=== PATIENT | female | born 1965 | race Caucasian/White ===

== ENCOUNTER → 2017-09-22 | Outpatient (CLI) | payer BC ==
[~2017-09-22] MED LIST: ALBU17I INH; ALBUAER3 INH; BUPR300T PO; CLAR10CA3 PO; CLON0.5T PO; DIAZ5 PO; DOCU1CAP39 PO; DOXY100C PO; E-ZMIS3 INH; ESTR2TAB PO; FLUT1BLS INH; FLUT1SPR9 EACH NARE; HYDR-3516 PO; HYDR12.56 PO; HYDR50TA94 PO; IBUP800 PO; IPRA0.02 NEB; LEVO-86 PO; LEVO100T75 PO; LORTA5 PO; LOSA100T PO; PANT40TA3 PO; PRAV20 PO; PRED10PA PO; ROSU1TAB6 PO; SYNT112T PO; VIST50CA PO; ZOLP10TA3 PO
[2017-09-22 12:35] LABS: HEMATOCRIT 39.5 % (35.0-46.0); HEMOGLOBIN 13.4 GM/DL (11.6-15.3); MEAN CORPUSCULAR HEMOGLOBIN 32.5 PG (27.0-34.0); MEAN CORPUSCULAR HGB CONC 33.9 % (32.0-36.0); PLATELET COUNT 301 TH/MM3 (150-450); RED BLOOD COUNT 4.11 MIL/MM3 (4.00-5.30); RED CELL DISTRIBUTION WIDTH 14.2 % (11.6-17.2); WHITE BLOOD COUNT 8.2 TH/MM3 (4.0-11.0)
[2017-09-22 12:46] LABS: PROTHROMBIN TIME - PATIENT 10.5 SEC (9.8-11.6)
[2017-09-22 12:47] LABS: BACTERIA, URINE RARE /hpf; BILIRUBIN, URINE NEG (NEG); BLOOD, URINE SMALL (NEG); GLUCOSE,URINE NEG (NEG); KETONE, URINE NEG (NEG); NITRITE,URINE NEG (NEG); SQUAMOUS EPITHELIAL CELL URINE 9 /hpf (0-5); URINE COLOR YELLOW (YELLW/STRAW); URINE LEUKOCYTE ESTERASE NEG (NEG)
[2017-09-22 12:55] LABS: BICARBONATE 27.8 MEQ/L (21.0-32.0); CALCIUM 9.2 MG/DL (8.5-10.1); CREATININE 0.99 MG/DL (0.50-1.00)
--- NOTE | 2017-09-22 14:30 | RADRPT ---
EXAM DATE/TIME: 09/22/2017 12:13 [facility] COMPARISON: CHEST PA & LAT, November 17, 2009, 17:14. [facility] INDICATIONS : Evaluate for pneumonia, pneumothorax and communicable diseases. Pre-op left lobectomy MEDICAL HISTORY : Chronic obstructive pulmonary disease. Hypertension SURGICAL HISTORY : Cholecystectomy. ENCOUNTER: Initial ACUITY: 1 day PAIN SCORE: 0/10 LOCATION: chest FINDINGS: Biapical interstitial opacities similar to previous exam. Wedge-shaped 1.7 cm parenchymal opacity tip r the left lung apex which has progressed since remote prior exam. The cardiomediastinal contours are unremarkable. Osseous structures are intact. CONCLUSION: Biapical scarring with progressive small 1.7 cm wedge-shaped parenchymal opacity near the left lung a pex which may reflect scarring. Consider CT examination for better evaluation as clinically indicated . Yuri Rausch MD on September 22, 2017 at 14:18 Board Certified Radiologist. This report was verified electronically.
--- NOTE | 2017-09-23 10:38 | EKG ---
Date Performed: 09/22/2017 Time Performed: 11:12:12 PTAGE: 51 years EKG: Sinus rhythm NORMAL ECG PREVIOUS TRACING : 11/17/2009 16.39 Bradycardia has resolved from the prior tracing. DOCTOR: Liam Squires Interpretating Date/Time 09/23/2017 10:37:40
== END ==
LOC: CPRE 10:49
PROVIDERS: ATTEND Thoracic Surgery (Cardiothoracic Vascular Surgery)
DX: Z01.812 Encounter for preprocedural laboratory examination (principal); Z01.811 Encounter for preprocedural respiratory examination; Z01.810 Encounter for preprocedural cardiovascular examination; R91.8 Other nonspecific abnormal finding of lung field
CPT/HCPCS: 36415; 71046; 80048; 81001; 85027; 85610; 85730; 93005

== ENCOUNTER 2017-09-29 05:25 | Inpatient (IN) | payer BC ==
[2017-09-29] VITALS (11 sets, daily range): BP systolic 113–114; BP diastolic 57–67; PULSE 75–98; RESP 16–21; TEMP 97.9–98.5; O2SAT 95–97
[~2017-09-29] VITALS: Ht 177.8 cm; Wt 90.0 kg
[~2017-09-29 05:25] MED LIST changes: -ALBU17I INH; -DIAZ5 PO; -DOCU1CAP39 PO; -DOXY100C PO; -E-ZMIS3 INH; -HYDR-3516 PO; -HYDR50TA94 PO; -IBUP800 PO; -LEVO100T75 PO; -LORTA5 PO; -PRAV20 PO; -PRED10PA PO; -SYNT112T PO; -VIST50CA PO
[2017-09-29] MEDS ORDERED: METOPROLOL TARTRATE 25 MG TAB PO PRN (05:45)
[2017-09-29] MEDS ORDERED: INSULIN HUMAN REGULAR 1,000 UNITS/10 ML VIAL SQ PRN (05:45)
[2017-09-29] MEDS ORDERED: CHLORHEXIDINE GLUCONATE 2 % 1 PACK (2 CLOTHS) TOPICAL PRN (05:45)
[2017-09-29] MEDS ORDERED: POVIDONE IODINE 5% (ANTISEPSIS KIT) 4 APPLICATIONS EACH NARE PRN (05:45)
[2017-09-29] MEDS ORDERED: SODIUM CHLORID 0.9% 500 ML IV PRN (05:45)
[2017-09-29] MEDS ORDERED: LACTATED RINGER'S 1000 ML IV PRN (05:45)
[2017-09-29] MEDS ORDERED: BUPIVACAINE LIPOSO PF 1.3% INJ 20 ML, DEXAMETHASONE INJ 4 MG, MORPHINE INJ 8 MG in SODI... IRRIGATION ONE (07:15)
[2017-09-29] MEDS ORDERED: METOCLOPRAMIDE HCL 10 MG/2 ML VIAL ONE (07:20)
[2017-09-29] MEDS ORDERED: FAMOTIDINE 20 MG/2 ML VIAL ONE (07:20)
[2017-09-29] MEDS ORDERED: ceFAZolin 2 GM PREMIX 0 ML ONE (07:25)
[2017-09-29] MEDS ORDERED: HEPARIN SODIUM - SQ 10,000 UNITS/ML VIAL ONE (07:25)
[2017-09-29] MEDS ORDERED: VANCOMYCIN HCL 1000 MG VIAL ONE (07:39)
--- NOTE | 2017-09-29 09:01 | PD.CAR.PN ---
CVT Progress Note Subjective/Hospital Course: 51yr female presented to PCP, Pulmonary with SOB, complete workup demonstrated 1.4 cm Pet-Positive mass left lower lobe PMH COPD, hypothyroidism, lung mass , chronic nicotine use electively admitted today for lung surgery Objective: Vital Signs Date Time Temp Pulse Resp B/P (MAP) Pulse Ox O2 Delivery O2 Flow Rate FiO2 09/29/17 06:13 98.0 85 20 147/78 (101) 95 Taylor Corbett September 29, 2017 09:01
[2017-09-29] MEDS ORDERED: BUPIVACAINE/EPINEPHRINE 0.5% PF 10 ML VIAL ONE (09:10)
[2017-09-29] MEDS ORDERED: BUPIVACAINE HCL PF 0.5% 30 ML VIAL ONE (09:11)
[2017-09-29] MEDS ORDERED: fentaNYL CITRATE 250 MCG/5 ML AMP ONE (09:37)
[2017-09-29] MEDS ORDERED: LIDOCAINE HCL 1% PF 5 ML SYRINGE OTHER ONE (12:00)
[2017-09-29] MEDS ORDERED: PROPOFOL 200 MG/20 ML AMP IV ONE (12:00)
[2017-09-29] MEDS ORDERED: PHENYLEPH/NS 1000 MCG/10 ML SYR IV ONE (12:00)
[2017-09-29] MEDS ORDERED: ONDANSETRON HCL 4 MG/2 ML VIAL IV PUSH ONE (12:00)
[2017-09-29] MEDS ORDERED: SODIUM CHLORID 0.9% 500 ML INJ 500 ML IV ONE (12:00)
[2017-09-29] MEDS ORDERED: ROCURONIUM INJ 50 MG/5 ML SYRINGE IV PUSH ONE (12:00)
[2017-09-29] MEDS ORDERED: SODIUM CHLOR 0.9% 250 ML INJ 250 ML IV ONE (12:00)
[2017-09-29] MEDS ORDERED: DEXAMETHASONE SOD PHOS 4 MG/ML VIAL IV ONE (12:00)
[2017-09-29] MEDS ORDERED: NORMOSOL R INJ 1,000 ML IV ONE (12:00)
[2017-09-29] MEDS ORDERED: VECURONIUM BROMIDE 20 MG VIAL IV ONE (12:00)
[2017-09-29] MEDS ORDERED: Post-op Orders (for Pharmacy) OTHER ONE (13:15)
[2017-09-29] MEDS ORDERED: ACETAMINOPHEN 325 MG TAB PO PRN (13:15)
[2017-09-29] MEDS ORDERED: NALOXONE HCL 0.4 MG/ML AMP IV PUSH PRN (13:15)
[2017-09-29] MEDS ORDERED: SODIUM CHLORIDE 0.9% FLUSH 10 ML FLUSH IV FLUSH PRN (13:15)
[2017-09-29] MEDS ORDERED: MAGNESIUM HYDROXIDE SUSP 30 ML CUP PO PRN (13:15)
[2017-09-29] MEDS: MORPHINE SULFATE 30 MG/30 ML PCA IV SCH (13:25)
[2017-09-29] MEDS: LACTATED RINGER'S 1000 ML INJ 1,000 ML IV SCH (13:25)
[2017-09-29] MEDS ORDERED: MIDAZOLAM HCL 2 MG/2 ML VIAL ONE (13:37)
[2017-09-29] MEDS ORDERED: DO NOT ADM ANY ANTICOAGULANT DRUGS PRN (14:00)
[2017-09-29] MEDS: PCA - TOTAL MG MORPHINE DELIVERED PER SHIFT SCH ×2 (14:00→22:10)
--- NOTE | 2017-09-29 14:07 | RADRPT ---
EXAM DATE/TIME: 09/29/2017 13:43 [facility] COMPARISON: CHEST PA & LAT, September 22, 2017, 12:13. INDICATIONS : Post thoracotomy, evaluate left chest tube and central line MEDICAL HISTORY : Chronic obstructive pulmonary disease. Hypertension SURGICAL HISTORY : Cholecystectomy. ENCOUNTER: Subsequent ACUITY: 4 - 6 days PAIN SCORE: Non-responsive. LOCATION: Bilateral chest FINDINGS: A single view of the chest demonstrates interval placement of a left-sided thoracostomy tube. No pneu mothorax. Left basilar consolidation/effusion some volume loss in the left hemithorax. Suggestion of some pleural-parenchymal scarring laterally in the right upper lung, unchanged. Right IJ introducer s raghav and catheter with the latter projecting over the central venous system. Surgical clips in the r ight upper abdominal quadrant are characteristic of prior cholecystectomy. CONCLUSION: 1. Volume loss in the left hemithorax with volume loss but no pneumothorax. 2. Left basilar consolidation/effusion. Probable pleural-parenchymal scarring laterally in the right upper lung. 3. Right IJ introducer sheath and central venous catheter Denys Smith MD on September 29, 2017 at 14:01 Board Certified Radiologist. This report was verified electronically.
--- NOTE | 2017-09-29 14:31 | PD.OP ---
cc: Jere Tolentino MD; Jeremias Etienne MD Operative Report Procedure: 1. Robotic Left Lower Lobectomy 2. Mediastinal Lymph Node Dissection. 3. Intercostal Nerve Block 4. Lysis of Adhesions Surgeon: Jere Tolentino Rockboard Lather(s): Serg Benson Operation and Findings: PREOPERATIVE DIAGNOSIS 1) Left Lower Lobe Lung Mass 2) Severe COPD 3) Obesity POSTOPERATIVE DIAGNOSIS 1) Left Lower Lobe Lung Mass 2) Severe COPD 3) Obesity 4) Dense Adhesions PROCEDURES 1. Robotic Left Lower Lobectomy 2. Mediastinal Lymph Node Dissection. 3. Intercostal Nerve Block 4. Lysis of Adhesions SURGEON Jere Tolentino MD RANCH RIDER JORGE Herring, CST ANESTHESIA General endotracheal. SHIPWRIGHT SUPERVISOR BENY Arevalo MD OPERATIVE TIME Please see record. COMPLICATIONS None. INDICATION FOR PROCEDURE The patient is a 51 yo lady with long standing h/o smoking presenting with a PET positive left lower lobe lung mass. DESCRIPTION OF PROCEDURE The patient was brought to the operating suite and placed in supine position. Following satisfactory induction of general endotracheal anesthesia, the patient was placed in the right lateral decubitus position. The left chest was then prepped and draped in the usual sterile fashion. Under direct vision, camera was introduced in the 8th ICS and insufflation was begun into the chest . Instrument arm 1, 2, and 3 were placed. Lesion was identified. Dense diffuse adhesions were encountered involving the entire lung. These were sharply divided. The lesion was resected with a surgical stapler and sent for frozen section analysis. This was consistent with a primary lung cancer. Plans were made to proceed with a formal lobectomy. The inferior pulmonary ligament was divided. The pulmonary arterial supply to the lower lobe was identified, dissected free and divided as was the pulmonary venous supply. The bronchus was then dissected free, clamped and the remaining lung was insufflated without any difficulty. Lymph node dissections of level 7, 9, 10 and 11 were performed along with the course of this removal. Some of these were retained with the specimen. Specimen was bagged and removed from the chest. A 32-Slovak chest tube was placed. Intercostal nerve block was performed at the level of the incision and 3 rib spaces above and below using Exparel with Decadron solution. Evicel was sprayed along the staple line and no air-leaks were identified. Wounds were closed with 2-0, 3-0, and 4-0 Monocryl. The patient tolerated the procedure well and postoperatively went to recovery in stable condition. Jere Tolentino MD September 29, 2017 14:31
--- NOTE | 2017-09-29 14:38 | HHI.FF ---
Face to Face Verification Diagnosis: (1) Tobacco abuse (2) COPD (chronic obstructive pulmonary disease) (3) Lung mass Home Health Nursing Order: Signs/symptoms of disease process Medication education-adverse effect Wound care and dressing changes Nursing assessment with vital signs Instructions: Thoracic Surgery patients Mandatory frequency Assess and evaluation, 2-3 x a week for one week Initial visit 1. Review post chest surgery instructions chest precautions, Activity, Elastic hose, Incision care, Driving, Incentive spirometry, Smoking, [place] , Work and other) 2. Need Betadine to paint incision 3. Medication reconciliation 4. Importance of follow up care/ check on appointments 5. Make calendar record temperature daily 6. When to call Home nurse, review instructions, phone list 7. Incentive Spirometry, demonstration Visit 1- Begin discharge instruction for patient family and/ or caregiver using teach back method- 1. Signs and symptoms of infection 2. Disease characteristics 3. Medicines and side effects 4. Foods and nutrition/ appetite 5. Infection control/ hand washing/ hygiene Visit 2- Continue teaching 1. Discharge instructions- include additional information on smoking cessation , Visit 3- Continue teaching- 1. Cough and deep breathing, incision monitoring. For any questions please call : [email or web address] Cardiothoracic Surgery [phone] Incentive spirometry Q1 hr x 10, while awake, also use acapella device hourly whole Chest wall precautions: NO pushing or pulling, ( pt must use chest pillow support chest with all activities and with coughing Daily incision care: ok to shower ( 48hrs after chest tube removed) and then daily, no tub bath. Wash all incisions with liquid dial soap, clean wash cloth to each site, rinse and pat dry. Observe for any signs of infection, such as drainage which is dark yellow, [place], green or foul smelling. Immediately report to the surgeon any drainage from the chest incision, or legs, and for any abnormal drainage from the chest tube sites. Notify surgeon if any temp > 101.5 degrees F. When specialty dressing removed/ or if you do not have one, continue to shower daily as above, then rinse and pat incision dry and paint with betadine daily x 5 days. Allow steri strips to fall off if you have any. Avoid lotions, creams, salves, oils, etc. for the first month F/U appointment: as per [facility] instructions: PCP in 2 weeks, CV surgeon 2 weeks, Ion Implant Machine Operator 3-4 weeks For any questions regarding incisions/ dressing / meds / post op care or above Symptoms, Thursday 8am-5pm Heart & Vascular Surgery Office ( Dr. Tolentino & Dr. Vasquez), After Hours / Nights (5pm -8am) Weekends and Holidays Please call [facility] Cardiac [facility] ([facility]) Charge Nurse I have seen patient Mary Gomez on 09/29/17. My clinical findings support the need for the requested home health care services because: Deconditioned w/ increased weakness I certify that my clinical findings support that this patient is homebound because: Post-op weakness Taylor Corbett September 29, 2017 14:38
[2017-09-29] MEDS: KETOROLAC TROMETHAMINE 30 MG/ML (IVP) VIAL IV PUSH SCH ×2 (16:31→21:43)
[2017-09-29] MEDS: ACETAMINOPHEN 1000 MG/100 ML 100 ML IV SCH ×2 (16:31→21:42)
[2017-09-29] MEDS: SODIUM CHLORIDE 0.9% FLUSH 10 ML FLUSH IV FLUSH SCH (21:43)
[2017-09-29] MEDS: VANCOMYCIN INJ 1 GM in SODIUM CHLORIDE 0.9% INJ 250 ML IV SCH (21:43)
[2017-09-29] MEDS: PANTOPRAZOLE SOD 40 MG DELAYED RELEASE TAB PO SCH (21:44)
[2017-09-29] MEDS: clonazePAM 0.5 MG TAB PO SCH (21:44)
[2017-09-29] MEDS: ATORVASTATIN 20 MG TAB PO SCH (21:44)
[2017-09-29] MEDS: DOCUSATE CALCIUM 240 MG CAP PO SCH (21:44)
[2017-09-29] MEDS: RESP: ALBUTEROL 2.5 MG/3 ML NEB (SCH) NEB (22:00)
[2017-09-30] VITALS (29 sets, daily range): BP systolic 118–143; BP diastolic 62–73; PULSE 75–114; RESP 19–21; TEMP 98–98.7; O2SAT 92–97
[2017-09-30] MEDS: KETOROLAC TROMETHAMINE 30 MG/ML (IVP) VIAL IV PUSH SCH ×2 (03:02→08:52)
[2017-09-30] MEDS: ACETAMINOPHEN 1000 MG/100 ML 100 ML IV SCH ×2 (03:02→08:50)
[2017-09-30] MEDS: RESP: ALBUTEROL 2.5 MG/3 ML NEB (SCH) NEB ×4 (03:21→20:59)
[2017-09-30 04:16] LABS: AUTOMATED NEUTROPHIL # 9.6 TH/MM3 (1.8-7.7); BASOPHIL % 0.2 % (0.0-2.0); EOSINOPHIL % 0.1 % (0.0-4.0); HEMATOCRIT 31.6 % (35.0-46.0); HEMOGLOBIN 10.7 GM/DL (11.6-15.3); LYMPH % 8.5 % (9.0-44.0); MEAN CELL VOLUME 94.1 FL (80.0-100.0); MEAN CORPUSCULAR HEMOGLOBIN 31.8 PG (27.0-34.0); MEAN CORPUSCULAR HGB CONC 33.8 % (32.0-36.0); MEAN PLATELET VOLUME 8.1 FL (7.0-11.0); MONOCYTE # 1.3 TH/MM3 (0-0.9); NEUT % 80.2 % (16.0-70.0); PLATELET COUNT 277 TH/MM3 (150-450); RED BLOOD COUNT 3.36 MIL/MM3 (4.00-5.30); RED CELL DISTRIBUTION WIDTH 14.4 % (11.6-17.2); WHITE BLOOD COUNT 11.9 TH/MM3 (4.0-11.0)
--- NOTE | 2017-09-30 04:27 | RADRPT ---
EXAM DATE/TIME: 09/30/2017 02:33 [facility] COMPARISON: CHEST SINGLE AP, September 29, 2017, 13:43. INDICATIONS : Short of breath. MEDICAL HISTORY : Chronic obstructive pulmonary disease. Hypertension SURGICAL HISTORY : Cholecystectomy. ENCOUNTER: Subsequent ACUITY: 1 week PAIN SCORE: 0/10 LOCATION: Bilateral chest FINDINGS: A single view of the chest demonstrates the left chest tube and right IJ central line both in excelle nt position. Left hemidiaphragm is slightly elevated. Right lung is grossly clear.. Osseous structur es are intact. CONCLUSION: No developing infiltrate or mass. Left hemidiaphragm remains slightly elevated. Clifton Kathleen MD on September 30, 2017 at 4:25 Board Certified Radiologist. This report was verified electronically.
[2017-09-30 04:37] LABS: BICARBONATE 27.3 MEQ/L (21.0-32.0); CALCIUM 8.6 MG/DL (8.5-10.1); CREATININE 0.95 MG/DL (0.50-1.00)
[2017-09-30] MEDS: PCA - TOTAL MG MORPHINE DELIVERED PER SHIFT SCH ×3 (06:00→22:00)
[2017-09-30] MEDS: LEVOTHYROXINE SODIUM 112 MCG TAB PO SCH (06:02)
[2017-09-30] MEDS: LEVOTHYROXINE SODIUM 25 MCG TAB PO SCH (06:02)
[2017-09-30] MEDS: VANCOMYCIN INJ 1 GM in SODIUM CHLORIDE 0.9% INJ 250 ML IV SCH (08:50)
[2017-09-30] MEDS: HYDROCHLOROTHIAZIDE 12.5 MG CAP PO SCH (08:51)
[2017-09-30] MEDS: ESTRADIOL 1 MG TAB PO SCH (08:51)
[2017-09-30] MEDS: buPROPion HCL 150 MG SUSTAINED RELEASE TAB PO SCH ×2 (08:51→20:30)
[2017-09-30] MEDS: clonazePAM 0.5 MG TAB PO SCH ×2 (08:51→20:29)
[2017-09-30] MEDS: SODIUM CHLORIDE 0.9% FLUSH 10 ML FLUSH IV FLUSH SCH ×2 (08:52→20:31)
--- NOTE | 2017-09-30 10:41 | PD.CAR.PN ---
CVT Progress Note Subjective/Hospital Course: 51yr female presented to PCP, Pulmonary with SOB, complete workup demonstrated 1.4 cm Pet-Positive mass left lower lobe PMH COPD, hypothyroidism, lung mass , chronic nicotine use 09/29/17 surgery: 1. Robotic Left Lower Lobectomy 2. Mediastinal Lymph Node Dissection. 3. Intercostal Nerve Block 4. Lysis of Adhesions 09/30 pain controlled with SPOT CLEANER Objective: GENERAL: A&O x 3 SKIN: Warm and dry. incision intact left posterior chest wall x 2 / HEAD: Normocephalic. EYES: No scleral icterus. No injection or drainage. NECK: Supple, trachea midline. No JVD or lymphadenopathy. CARDIOVASCULAR: Regular rate and rhythm without murmurs, gallops, or rubs. RESPIRATORY: Breath sounds equal bilaterally. No accessory muscle use. diminished left lower lobe , chest tube to water seal + +1 air leak intermittent drained 290cc/ 12 hrs GASTROINTESTINAL: Abdomen soft, non-tender, nondistended. MUSCULOSKELETAL: No cyanosis, or edema. BACK: Nontender without obvious deformity. No CVA tenderness. Vital Signs Date Time Temp Pulse Resp B/P (MAP) Pulse Ox O2 Delivery O2 Flow Rate FiO2 09/30/17 10:03 93 09/30/17 08:00 98.4 78 20 127/63 (84) 96 09/30/17 08:00 88 09/30/17 07:00 79 09/30/17 06:23 81 09/30/17 06:00 21 09/30/17 05:12 86 09/30/17 04:44 85 09/30/17 03:25 Nasal Cannula 2.00 09/30/17 03:20 82 09/30/17 03:20 98.0 75 19 119/66 (83) 96 09/30/17 02:13 85 09/30/17 01:26 82 09/30/17 00:46 82 09/29/17 23:53 85 09/29/17 23:20 98.5 79 21 114/58 (76) 95 09/29/17 22:10 21 09/29/17 22:00 78 09/29/17 21:00 82 09/29/17 20:00 98 09/29/17 19:10 85 09/29/17 19:10 98.4 88 20 113/57 (75) 97 09/29/17 18:00 90 09/29/17 17:00 86 09/29/17 16:00 88 09/29/17 15:48 92 09/29/17 15:34 97.9 75 16 113/67 (82) 97 09/29/17 15:00 97.5 81 18 104/66 (79) 100 Nasal Cannula 2 09/29/17 14:30 81 17 107/59 (75) 100 Nasal Cannula 2 09/29/17 14:15 82 13 111/65 (80) 99 Nasal Cannula 2 09/29/17 14:00 82 13 111/63 (79) 99 Nasal Cannula 2 09/29/17 14:00 20 09/29/17 13:45 85 22 100/60 (73) 99 Nasal Cannula 2 09/29/17 13:30 91 18 100/53 (69) 98 Nasal Cannula 2 09/29/17 13:27 97.6 90 18 105/69 (81) 100 Nasal Cannula 2 09/29/17 13:25 14 Labs: Laboratory Tests Test 09/30/17 03:30 White Blood Count 11.9 TH/MM3 (4.0-11.0) Red Blood Count 3.36 MIL/MM3 (4.00-5.30) Hemoglobin 10.7 GM/DL (11.6-15.3) Hematocrit 31.6 % (35.0-46.0) Mean Corpuscular Volume 94.1 FL (80.0-100.0) Mean Corpuscular Hemoglobin 31.8 PG (27.0-34.0) Mean Corpuscular Hemoglobin Concent 33.8 % (32.0-36.0) Red Cell Distribution Width 14.4 % (11.6-17.2) Platelet Count 277 TH/MM3 (150-450) Mean Platelet Volume 8.1 FL (7.0-11.0) Neutrophils (%) (Auto) 80.2 % (16.0-70.0) Lymphocytes (%) (Auto) 8.5 % (9.0-44.0) Monocytes (%) (Auto) 11.0 % (0.0-8.0) Eosinophils (%) (Auto) 0.1 % (0.0-4.0) Basophils (%) (Auto) 0.2 % (0.0-2.0) Neutrophils # (Auto) 9.6 TH/MM3 (1.8-7.7) Lymphocytes # (Auto) 1.0 TH/MM3 (1.0-4.8) Monocytes # (Auto) 1.3 TH/MM3 (0-0.9) Eosinophils # (Auto) 0.0 TH/MM3 (0-0.4) Basophils # (Auto) 0.0 TH/MM3 (0-0.2) CBC Comment DIFF FINAL Differential Comment Blood Urea Nitrogen 15 MG/DL (7-18) Creatinine 0.95 MG/DL (0.50-1.00) Random Glucose 112 MG/DL (74-106) Calcium Level 8.6 MG/DL (8.5-10.1) Sodium Level 138 MEQ/L (136-145) Potassium Level 4.3 MEQ/L (3.5-5.1) Chloride Level 103 MEQ/L (98-107) Carbon Dioxide Level 27.3 MEQ/L (21.0-32.0) Anion Gap 8 MEQ/L (5-15) Estimat Glomerular Filtration Rate 62 ML/MIN (>89) Result Diagram: 09/30/17 0330 09/30/17 0330 Telemetry: NSR (1) Mixed hyperlipidemia (2) COPD (chronic obstructive pulmonary disease) (3) Tobacco abuse (4) Lung mass (5) Robotic Left Lower Lobectomy Plan: pulm toileting OOB, ambulate nebs pain control path pending Taylor Corbett September 30, 2017 10:41
[2017-09-30] MEDS: FLUTICASONE PROPIONATE 50 MCG/ACT 16 GM NASAL SPRAY EACH NARE SCH (10:49)
[2017-09-30] MEDS: MORPHINE SULFATE 30 MG/30 ML PCA IV SCH (17:24)
[2017-09-30] MEDS: ONDANSETRON HCL 4 MG/2 ML VIAL IV PUSH PRN (20:29)
[2017-09-30] MEDS: PANTOPRAZOLE SOD 40 MG DELAYED RELEASE TAB PO SCH (20:30)
[2017-09-30] MEDS: DOCUSATE CALCIUM 240 MG CAP PO SCH (20:30)
[2017-09-30] MEDS: ATORVASTATIN 20 MG TAB PO SCH (20:30)
[2017-09-30] MEDS: ACETAMINOPHEN/HYDROcodone 325 MG/5 MG TAB PO PRN (20:31)
[2017-10-01] VITALS (24 sets, daily range): BP systolic 108–140; BP diastolic 59–69; PULSE 86–113; RESP 14–20; TEMP 97.9–98.4; O2SAT 95–100
[2017-10-01] MEDS: RESP: ALBUTEROL 2.5 MG/3 ML NEB (SCH) NEB ×4 (04:06→21:18)
[2017-10-01] MEDS: PCA - TOTAL MG MORPHINE DELIVERED PER SHIFT SCH ×3 (06:00→20:33)
[2017-10-01] MEDS: LEVOTHYROXINE SODIUM 25 MCG TAB PO SCH (06:13)
[2017-10-01] MEDS: LEVOTHYROXINE SODIUM 112 MCG TAB PO SCH (06:14)
[2017-10-01] MEDS: POLYETHYLENE GLYCOL 17 GM PKG PO SCH (09:17)
[2017-10-01] MEDS: clonazePAM 0.5 MG TAB PO SCH ×2 (09:17→20:33)
[2017-10-01] MEDS: DOCUSATE SODIUM 100 MG CAP PO SCH ×2 (09:17→20:32)
[2017-10-01] MEDS: ESTRADIOL 1 MG TAB PO SCH (09:17)
[2017-10-01] MEDS: buPROPion HCL 150 MG SUSTAINED RELEASE TAB PO SCH ×2 (09:17→20:32)
[2017-10-01] MEDS: HYDROCHLOROTHIAZIDE 12.5 MG CAP PO SCH (09:17)
[2017-10-01] MEDS: ONDANSETRON HCL 4 MG/2 ML VIAL IV PUSH PRN (09:18)
[2017-10-01] MEDS: SODIUM CHLORIDE 0.9% FLUSH 10 ML FLUSH IV FLUSH SCH ×2 (09:18→20:33)
[2017-10-01] MEDS: FLUTICASONE PROPIONATE 50 MCG/ACT 16 GM NASAL SPRAY EACH NARE SCH (09:19)
--- NOTE | 2017-10-01 10:07 | PD.CAR.PN ---
CVT Progress Note Subjective/Hospital Course: 51yr female presented to PCP, Pulmonary with SOB, complete workup demonstrated 1.4 cm Pet-Positive mass left lower lobe PMH COPD, hypothyroidism, lung mass , chronic nicotine use 09/29/17 surgery: 1. Robotic Left Lower Lobectomy 2. Mediastinal Lymph Node Dissection. 3. Intercostal Nerve Block 4. Lysis of Adhesions 09/30 pain controlled with BUTTON SEWER HAND 10/01 more painful today, despite BUTTON SEWER HAND Toradol added still has +1 air leak, on water seal leave chest tube in OOB Objective: GENERAL: A&O x 3 SKIN: Warm and dry. incisions intact to left posterior chest wall, HEAD: Normocephalic. EYES: No scleral icterus. No injection or drainage. NECK: Supple, trachea midline. No JVD or lymphadenopathy. CARDIOVASCULAR: Regular rate and rhythm without murmurs, gallops, or rubs. RESPIRATORY: Breath sounds equal bilaterally. No accessory muscle use. chest tube in place to water seal/ drained 190cc/ 12 hrs GASTROINTESTINAL: Abdomen soft, non-tender, nondistended. MUSCULOSKELETAL: No cyanosis, or edema. BACK: Nontender without obvious deformity. No CVA tenderness. Vital Signs Date Time Temp Pulse Resp B/P (MAP) Pulse Ox O2 Delivery O2 Flow Rate FiO2 10/01/17 09:00 96 10/01/17 08:00 102 10/01/17 08:00 98.2 99 18 126/60 (82) 97 10/01/17 07:00 99 10/01/17 06:07 107 10/01/17 06:00 19 10/01/17 05:06 103 10/01/17 04:00 102 10/01/17 03:28 98.4 99 20 140/69 (92) 95 10/01/17 03:28 107 10/01/17 02:08 97 10/01/17 01:22 97 10/01/17 00:33 105 09/30/17 23:20 98.7 105 21 143/65 (91) 97 09/30/17 23:20 105 09/30/17 22:00 113 09/30/17 22:00 20 09/30/17 21:00 110 09/30/17 20:59 94 Nasal Cannula 2.00 09/30/17 20:00 102 09/30/17 19:10 98.5 114 21 142/73 (96) 92 09/30/17 19:10 105 09/30/17 18:00 98 09/30/17 17:00 92 09/30/17 16:32 96 21 09/30/17 16:00 90 09/30/17 15:27 98.4 92 20 118/64 (82) 96 09/30/17 15:00 97 09/30/17 14:00 90 09/30/17 13:29 20 09/30/17 13:00 88 09/30/17 12:00 92 09/30/17 11:48 98.0 96 20 124/62 (82) 96 09/30/17 11:00 96 Result Diagram: 09/30/17 0330 09/30/17 0330 Telemetry: NSR (1) Mixed hyperlipidemia (2) COPD (chronic obstructive pulmonary disease) (3) Tobacco abuse (4) Lung mass (5) Robotic Left Lower Lobectomy Plan: pulm toileting OOB, ambulate nebs pain control / add toradol path pending Taylor Corbett October 01, 2017 10:07
[2017-10-01] MEDS: LACTATED RINGER'S 1000 ML INJ 1,000 ML IV SCH ×2 (13:25→13:30)
[2017-10-01] MEDS: KETOROLAC TROMETHAMINE 30 MG/ML (IVP) VIAL IV PUSH PRN (20:30)
[2017-10-01] MEDS: ACETAMINOPHEN/HYDROcodone 325 MG/5 MG TAB PO PRN (20:31)
[2017-10-01] MEDS: ZOLPIDEM TARTRATE 10 MG TAB PO PRN (20:31)
[2017-10-01] MEDS: DOCUSATE CALCIUM 240 MG CAP PO SCH (20:32)
[2017-10-01] MEDS: PANTOPRAZOLE SOD 40 MG DELAYED RELEASE TAB PO SCH (20:32)
[2017-10-01] MEDS: ATORVASTATIN 20 MG TAB PO SCH (20:32)
[2017-10-01] MEDS: MORPHINE SULFATE 30 MG/30 ML PCA IV SCH (20:35)
[2017-10-02] VITALS (25 sets, daily range): BP systolic 113–134; BP diastolic 16–81; PULSE 16–100; RESP 16–18; TEMP 97.9–98.1; O2SAT 91–100
[2017-10-02] MEDS: RESP: ALBUTEROL 2.5 MG/3 ML NEB (SCH) NEB ×3 (04:09→21:00)
--- NOTE | 2017-10-02 05:35 | RADRPT ---
EXAM DATE/TIME: 10/02/2017 04:30 [facility] COMPARISON: CHEST SINGLE AP, September 30, 2017, 2:33. INDICATIONS : Chest tube with air leak. MEDICAL HISTORY : Chronic obstructive pulmonary disease. Hypertension SURGICAL HISTORY : Cholecystectomy. ENCOUNTER: Subsequent ACUITY: 1 day PAIN SCORE: Non-responsive. LOCATION: Bilateral chest FINDINGS: A single view of the chest demonstrates left-sided chest tube without pneumothorax. Pleural-parenchym al density throughout the left lung. Right jugular line unchanged. Osseous structures are intact. CONCLUSION: Left-sided chest tube without pneumothorax. Pleural-parenchymal density throughout the left lung. Jermaine Simpson MD on October 02, 2017 at 5:33 Board Certified Radiologist. This report was verified electronically.
[2017-10-02] MEDS: PCA - TOTAL MG MORPHINE DELIVERED PER SHIFT SCH (06:00)
[2017-10-02] MEDS: LEVOTHYROXINE SODIUM 112 MCG TAB PO SCH (06:32)
[2017-10-02] MEDS: LEVOTHYROXINE SODIUM 25 MCG TAB PO SCH (06:32)
[2017-10-02] MEDS: POLYETHYLENE GLYCOL 17 GM PKG PO SCH (10:40)
[2017-10-02] MEDS: KETOROLAC TROMETHAMINE 30 MG/ML (IVP) VIAL IV PUSH PRN (10:40)
[2017-10-02] MEDS: ESTRADIOL 1 MG TAB PO SCH (10:40)
[2017-10-02] MEDS: DOCUSATE SODIUM 100 MG CAP PO SCH ×2 (10:41→21:20)
[2017-10-02] MEDS: clonazePAM 0.5 MG TAB PO SCH ×2 (10:41→21:20)
[2017-10-02] MEDS: SODIUM CHLORIDE 0.9% FLUSH 10 ML FLUSH IV FLUSH SCH ×2 (10:41→23:13)
[2017-10-02] MEDS: HYDROCHLOROTHIAZIDE 12.5 MG CAP PO SCH (10:41)
[2017-10-02] MEDS: FLUTICASONE PROPIONATE 50 MCG/ACT 16 GM NASAL SPRAY EACH NARE SCH (10:41)
[2017-10-02] MEDS: buPROPion HCL 150 MG SUSTAINED RELEASE TAB PO SCH ×2 (10:41→21:21)
--- NOTE | 2017-10-02 12:01 | PD.CAR.PN ---
CVT Progress Note Subjective/Hospital Course: 51yr female presented to PCP, Pulmonary with SOB, complete workup demonstrated 1.4 cm Pet-Positive mass left lower lobe PMH COPD, hypothyroidism, lung mass , chronic nicotine use 09/29/17 surgery: 1. Robotic Left Lower Lobectomy 2. Mediastinal Lymph Node Dissection. 3. Intercostal Nerve Block 4. Lysis of Adhesions 09/30 pain controlled with MANAGEMENT EXPERT 10/01 more painful today, despite MANAGEMENT EXPERT Toradol added still has +1 air leak, on water seal leave chest tube in OOB 10/02 pt nauseated , will dc MANAGEMENT EXPERT pump add reglan po pain meds intermittent air leak, no PTX on chest xray add GI motility meds Objective: GENERAL: A&O x 3 SKIN: Warm and dry. incisions intact left lateral chest wall HEAD: Normocephalic. EYES: No scleral icterus. No injection or drainage. NECK: Supple, trachea midline. No JVD or lymphadenopathy. CARDIOVASCULAR: Regular rate and rhythm without murmurs, gallops, or rubs. RESPIRATORY: Breath sounds equal bilaterally. No accessory muscle use. chest tube in place , drained 140cc/ 12 hrs 430cc /24 hrs , intermittent air leak GASTROINTESTINAL: Abdomen soft, non-tender, nondistended. MUSCULOSKELETAL: No cyanosis, or edema. BACK: Nontender without obvious deformity. No CVA tenderness. Vital Signs Date Time Temp Pulse Resp B/P (MAP) Pulse Ox O2 Delivery O2 Flow Rate FiO2 10/02/17 06:00 16 10/02/17 06:00 94 10/02/17 05:00 94 10/02/17 04:11 98 Nasal Cannula 2.00 10/02/17 04:00 86 10/02/17 04:00 98.1 88 16 116/16 (49) 100 10/02/17 03:00 87 10/02/17 02:00 94 10/02/17 01:00 88 10/02/17 00:00 98.1 91 16 124/60 (81) 100 10/02/17 00:00 90 10/01/17 23:00 103 10/01/17 22:00 92 10/01/17 21:00 94 10/01/17 20:35 16 10/01/17 20:33 18 10/01/17 20:00 96 10/01/17 20:00 97.9 97 16 117/59 (78) 100 10/01/17 19:00 94 10/01/17 18:00 97 10/01/17 17:00 95 10/01/17 16:00 91 10/01/17 15:05 Nasal Cannula 2.00 10/01/17 15:00 92 10/01/17 15:00 98.1 86 14 108/59 (75) 100 10/01/17 14:00 94 10/01/17 13:00 103 10/01/17 12:00 96 Result Diagram: 09/30/17 0330 09/30/17 0330 Telemetry: NSR (1) Mixed hyperlipidemia (2) COPD (chronic obstructive pulmonary disease) (3) Tobacco abuse (4) Lung mass (5) Robotic Left Lower Lobectomy Plan: pulm toileting OOB, ambulate nebs pain control / add toradol/ DC MANAGEMENT EXPERT add additional po meds add reglan / GI motility meds path pending Taylor Corbett October 02, 2017 12:01
[2017-10-02] MEDS ORDERED: BISACODYL 10 MG SUPP RECTAL ONE (12:15)
[2017-10-02] MEDS ORDERED: SOD PHOSPHATE/SOD BIPHOSPHATE (ADULT) ENEMA 133ML PR ONE (14:00)
[2017-10-02] MEDS: METOCLOPRAMIDE HCL 10 MG/2 ML VIAL IV PUSH SCH ×2 (14:29→21:23)
[2017-10-02] MEDS: PANTOPRAZOLE SOD 40 MG DELAYED RELEASE TAB PO SCH (21:20)
[2017-10-02] MEDS: ATORVASTATIN 20 MG TAB PO SCH (21:21)
[2017-10-02] MEDS: ACETAMINOPHEN/HYDROcodone 325 MG/5 MG TAB PO PRN (21:22)
[2017-10-03] VITALS (22 sets, daily range): BP systolic 117–159; BP diastolic 58–80; PULSE 76–98; RESP 16–22; TEMP 97.5–98.3; O2SAT 92–98
[2017-10-03] MEDS: ACETAMINOPHEN/HYDROcodone 325 MG/5 MG TAB PO PRN ×5 (02:59→21:00)
[2017-10-03] MEDS: RESP: ALBUTEROL 2.5 MG/3 ML NEB (SCH) NEB ×2 (04:00→12:54)
[2017-10-03] MEDS: LEVOTHYROXINE SODIUM 112 MCG TAB PO SCH (05:36)
[2017-10-03] MEDS: LEVOTHYROXINE SODIUM 25 MCG TAB PO SCH (05:36)
[2017-10-03] MEDS: METOCLOPRAMIDE HCL 10 MG/2 ML VIAL IV PUSH SCH ×2 (05:37→14:21)
[2017-10-03] MEDS: FLUTICASONE PROPIONATE 50 MCG/ACT 16 GM NASAL SPRAY EACH NARE SCH (08:50)
[2017-10-03] MEDS: buPROPion HCL 150 MG SUSTAINED RELEASE TAB PO SCH ×2 (08:50→20:58)
[2017-10-03] MEDS: ESTRADIOL 1 MG TAB PO SCH (08:50)
[2017-10-03] MEDS: HYDROCHLOROTHIAZIDE 12.5 MG CAP PO SCH (08:50)
[2017-10-03] MEDS: clonazePAM 0.5 MG TAB PO SCH ×2 (08:50→20:58)
[2017-10-03] MEDS: SODIUM CHLORIDE 0.9% FLUSH 10 ML FLUSH IV FLUSH SCH ×2 (08:51→21:00)
[2017-10-03] MEDS: DOCUSATE SODIUM 100 MG CAP PO SCH ×2 (12:58→20:57)
[2017-10-03] MEDS: POLYETHYLENE GLYCOL 17 GM PKG PO SCH (12:58)
[2017-10-03] MEDS: PANTOPRAZOLE SOD 40 MG DELAYED RELEASE TAB PO SCH (20:57)
[2017-10-03] MEDS: ATORVASTATIN 20 MG TAB PO SCH (20:57)
[2017-10-04] VITALS (20 sets, daily range): BP systolic 134–158; BP diastolic 67–77; PULSE 72–110; RESP 18–22; TEMP 97.5–98.5; O2SAT 92–99
[2017-10-04] MEDS: ACETAMINOPHEN/HYDROcodone 325 MG/5 MG TAB PO PRN ×5 (00:26→20:43)
--- NOTE | 2017-10-04 04:26 | RADRPT ---
EXAM DATE/TIME: 10/04/2017 04:56 [facility] COMPARISON: CHEST SINGLE AP, October 02, 2017, 4:30. INDICATIONS : Shortness of breath, possible left pneumothorax. MEDICAL HISTORY : Chronic obstructive pulmonary disease. Hypertension SURGICAL HISTORY : Cholecystectomy. ENCOUNTER: Subsequent ACUITY: 4 - 6 days PAIN SCORE: 3/10 LOCATION: Left chest FINDINGS: A single AP erect portable view of the chest was obtained and demonstrates interval removal of the pr eviously noted right internal jugular central venous line. The left-sided chest tube remains in place with no pneumothorax. Pleural-based opacity remains in the left lung greatest along the periphery. T he right lung remains clear. The only thorax is stable and intact. CONCLUSION: 1. Interval removal of previously noted right internal jugular central venous line. 2. Left-sided chest tube with no pneumothorax. Pleural-based opacity remains in the left lung. Kavin Tabor MD on October 04, 2017 at 4:24 Board Certified Radiologist. This report was verified electronically.
[2017-10-04] MEDS: LEVOTHYROXINE SODIUM 25 MCG TAB PO SCH (06:00)
[2017-10-04] MEDS: LEVOTHYROXINE SODIUM 112 MCG TAB PO SCH (06:00)
[2017-10-04] MEDS: DOCUSATE SODIUM 100 MG CAP PO SCH ×2 (08:46→20:42)
[2017-10-04] MEDS: buPROPion HCL 150 MG SUSTAINED RELEASE TAB PO SCH ×2 (08:46→20:41)
[2017-10-04] MEDS: POLYETHYLENE GLYCOL 17 GM PKG PO SCH (08:46)
[2017-10-04] MEDS: ESTRADIOL 1 MG TAB PO SCH (08:47)
[2017-10-04] MEDS: HYDROCHLOROTHIAZIDE 12.5 MG CAP PO SCH (08:47)
[2017-10-04] MEDS: clonazePAM 0.5 MG TAB PO SCH ×2 (08:48→20:42)
[2017-10-04] MEDS: SODIUM CHLORIDE 0.9% FLUSH 10 ML FLUSH IV FLUSH SCH ×2 (09:05→20:47)
[2017-10-04] MEDS: FLUTICASONE PROPIONATE 50 MCG/ACT 16 GM NASAL SPRAY EACH NARE SCH (09:06)
--- NOTE | 2017-10-04 10:09 | PD.CAR.PN ---
CVT Progress Note CVT: POD #: 5 Subjective/Hospital Course: 51yr female presented to PCP, Pulmonary with SOB, complete workup demonstrated 1.4 cm Pet-Positive mass left lower lobe PMH COPD, hypothyroidism, lung mass , chronic nicotine use 09/29/17 surgery: 1. Robotic Left Lower Lobectomy 2. Mediastinal Lymph Node Dissection. 3. Intercostal Nerve Block 4. Lysis of Adhesions 09/30 pain controlled with ADMITTING SUPERVISOR 10/01 more painful today, despite ADMITTING SUPERVISOR Toradol added still has +1 air leak, on water seal leave chest tube in OOB 10/02 pt nauseated , will dc ADMITTING SUPERVISOR pump add reglan po pain meds intermittent air leak, no PTX on chest xray add GI motility meds 10/04/17 No complaints today. Remains on oxygen and has a small air leak this morning. Objective: Vital Signs Date Time Temp Pulse Resp B/P (MAP) Pulse Ox O2 Delivery O2 Flow Rate FiO2 10/04/17 09:00 94 10/04/17 08:00 98 10/04/17 07:00 72 10/04/17 05:20 18 10/04/17 03:00 98.5 86 18 146/67 (93) 95 10/04/17 01:30 18 10/03/17 23:00 97.9 97 22 150/70 (96) 93 10/03/17 19:00 98.3 87 18 159/73 (101) 95 10/03/17 18:00 88 10/03/17 17:00 77 10/03/17 16:00 82 10/03/17 15:00 76 10/03/17 15:00 97.9 85 16 145/80 (101) 92 10/03/17 14:00 78 10/03/17 13:00 98 10/03/17 12:54 95 2.00 10/03/17 12:00 78 10/03/17 11:00 97.9 78 18 117/58 (77) 93 10/03/17 11:00 78 Result Diagram: 09/30/17 0330 09/30/17 0330 Imaging: Last 24 hours Impressions Chest X-Ray 10/04/17 0600 Signed Impressions: Service Date/Time: Wednesday, October 04, 2017 04:56 - CONCLUSION: 1. Interval removal of previously noted right internal jugular central venous line. 2. Left-sided chest tube with no pneumothorax. Pleural-based opacity remains in the left lung. Kavin Tabor MD Cardiovascular: RRR Telemetry: NSR Pulmonary: CTA GI/: NABS, NT Incision: dry and intact CT: 170ml/24hrs, small air leak with cough Plan: Wean oxygen Continue chest tube Encourage ambulation Stim BM (1) Mixed hyperlipidemia (2) COPD (chronic obstructive pulmonary disease) (3) Tobacco abuse (4) Lung mass (5) Robotic Left Lower Lobectomy Plan: pulm toileting OOB, ambulate nebs pain control / add toradol/ DC ADMITTING SUPERVISOR add additional po meds add reglan / GI motility meds path pending Teresa Vasquez MD October 04, 2017 10:09
[2017-10-04] MEDS: RESP: ALBUTEROL 2.5 MG/3 ML NEB (PRN) NEB (18:24)
[2017-10-04] MEDS: PANTOPRAZOLE SOD 40 MG DELAYED RELEASE TAB PO SCH (20:42)
[2017-10-04] MEDS: ATORVASTATIN 20 MG TAB PO SCH (20:42)
[2017-10-05] VITALS (26 sets, daily range): BP systolic 101–163; BP diastolic 51–74; PULSE 72–124; RESP 20–22; TEMP 97.8–98.6; O2SAT 91–98
[2017-10-05] MEDS: ACETAMINOPHEN/HYDROcodone 325 MG/5 MG TAB PO PRN ×7 (00:13→21:08)
[2017-10-05] MEDS: LEVOTHYROXINE SODIUM 25 MCG TAB PO SCH (04:58)
[2017-10-05] MEDS: LEVOTHYROXINE SODIUM 112 MCG TAB PO SCH (04:58)
[2017-10-05] MEDS: HYDROCHLOROTHIAZIDE 12.5 MG CAP PO SCH (07:57)
[2017-10-05] MEDS: SODIUM CHLORIDE 0.9% FLUSH 10 ML FLUSH IV FLUSH SCH ×2 (07:57→21:00)
[2017-10-05] MEDS: buPROPion HCL 150 MG SUSTAINED RELEASE TAB PO SCH ×2 (07:57→21:01)
[2017-10-05] MEDS: ESTRADIOL 1 MG TAB PO SCH (07:57)
[2017-10-05] MEDS: POLYETHYLENE GLYCOL 17 GM PKG PO SCH (07:57)
[2017-10-05] MEDS: clonazePAM 0.5 MG TAB PO SCH ×2 (07:57→21:02)
[2017-10-05] MEDS: DOCUSATE SODIUM 100 MG CAP PO SCH ×2 (07:57→21:00)
[2017-10-05] MEDS: FLUTICASONE PROPIONATE 50 MCG/ACT 16 GM NASAL SPRAY EACH NARE SCH (07:58)
[2017-10-05] MEDS: RESP: ALBUTEROL 2.5 MG/3 ML NEB (PRN) NEB (10:08)
[2017-10-05 11:28] LABS: HEMATOCRIT 36.5 % (35.0-46.0); HEMOGLOBIN 12.2 GM/DL (11.6-15.3); MEAN CELL VOLUME 95.5 FL (80.0-100.0); MEAN CORPUSCULAR HGB CONC 33.5 % (32.0-36.0); MEAN PLATELET VOLUME 7.3 FL (7.0-11.0); PLATELET COUNT 430 TH/MM3 (150-450); RED BLOOD COUNT 3.82 MIL/MM3 (4.00-5.30); RED CELL DISTRIBUTION WIDTH 14.3 % (11.6-17.2); WHITE BLOOD COUNT 11.3 TH/MM3 (4.0-11.0)
[2017-10-05] MEDS ORDERED: SOD PHOSPHATE/SOD BIPHOSPHATE (ADULT) ENEMA 133ML PR ONE (11:30)
[2017-10-05] MEDS ORDERED: BISACODYL 10 MG SUPP RECTAL ONE (11:30)
[2017-10-05] MEDS ORDERED: MAGNESIUM CITRATE SOLN 300 ML BTL PO ONE (11:30)
[2017-10-05 12:13] LABS: BICARBONATE 34.5 MEQ/L (21.0-32.0); CREATININE 0.95 MG/DL (0.50-1.00); PHOSPHORUS 3.7 MG/DL (2.5-4.9)
--- NOTE | 2017-10-05 13:13 | RADRPT ---
EXAM DATE/TIME: 10/05/2017 12:51 CORRECTION Corrected on: October 07, 2017; Corrected Report date [facility] COMPARISON: CHEST SINGLE AP, October 04, 2017, 4:56. INDICATIONS : Post chest tube removal MEDICAL HISTORY : Chronic obstructive pulmonary disease. Hypertension SURGICAL HISTORY : Cholecystectomy. lobectomy ENCOUNTER: Subsequent ACUITY: 4 - 6 days PAIN SCORE: 3/10 LOCATION: Left chest FINDINGS: . Chest tube has been removed. Unchanged persistent left base. Right lung clear. The cardiomedias tinal contours are unremarkable. Osseous structures are intact. CONCLUSION: Chest tube removal on the left without pneumothorax. Consolidative process George Keane MD FACR on October 05, 2017 at 13:09 Board Certified Radiologist. This report was verified electronically.
[2017-10-05] MEDS ORDERED: MAGNESIUM SULFATE 1 GM PREMIX 100 ML IV ONE (13:45)
--- NOTE | 2017-10-05 13:48 | PD.CAR.PN ---
CVT Progress Note Subjective/Hospital Course: 51yr female presented to PCP, Pulmonary with SOB, complete workup demonstrated 1.4 cm Pet-Positive mass left lower lobe PMH COPD, hypothyroidism, lung mass , chronic nicotine use 09/29/17 surgery: 1. Robotic Left Lower Lobectomy 2. Mediastinal Lymph Node Dissection. 3. Intercostal Nerve Block 4. Lysis of Adhesions 09/30 pain controlled with DOCUMENTATION MANAGER 10/01 more painful today, despite DOCUMENTATION MANAGER Toradol added still has +1 air leak, on water seal leave chest tube in OOB 10/02 pt nauseated , will dc DOCUMENTATION MANAGER pump add reglan po pain meds intermittent air leak, no PTX on chest xray add GI motility meds 10/04/17 No complaints today. Remains on oxygen and has a small air leak this morning. 10/05 K+ 2.9 potassium po given, also one gram magnesium additional GI motility meds given eval for dc in am CXR noted, no PTX , atelectasis left lower lobe Objective: Vital Signs Date Time Temp Pulse Resp B/P (MAP) Pulse Ox O2 Delivery O2 Flow Rate FiO2 10/05/17 13:00 87 10/05/17 12:00 106 10/05/17 11:00 94 Nasal Cannula 2.00 10/05/17 11:00 98.6 100 20 132/58 (82) 94 10/05/17 11:00 96 10/05/17 10:08 97 Nasal Cannula 2.00 10/05/17 10:00 109 10/05/17 10:00 94 Nasal Cannula 2.00 10/05/17 09:00 107 10/05/17 08:40 94 Room Air 10/05/17 08:00 100 10/05/17 07:00 114 10/05/17 07:00 98.1 94 20 141/67 (91) 94 10/05/17 06:00 84 10/05/17 05:00 87 10/05/17 04:00 86 10/05/17 04:00 97.9 101 20 155/72 (99) 92 10/05/17 03:00 84 10/05/17 02:00 84 10/05/17 01:00 86 10/05/17 00:00 97.8 103 22 163/74 (103) 93 10/05/17 00:00 96 10/04/17 23:00 89 10/04/17 22:00 96 10/04/17 21:50 92 21 10/04/17 21:00 110 10/04/17 20:00 98.3 106 22 158/77 (104) 99 10/04/17 20:00 101 10/04/17 19:00 100 10/04/17 18:25 96 Nasal Cannula 2.00 10/04/17 18:00 88 10/04/17 17:00 94 10/04/17 16:00 100 10/04/17 15:00 98 10/04/17 15:00 98.3 97 18 136/74 (94) 92 10/04/17 14:00 84 Labs: Laboratory Tests Test 10/05/17 11:03 White Blood Count 11.3 TH/MM3 (4.0-11.0) Red Blood Count 3.82 MIL/MM3 (4.00-5.30) Hemoglobin 12.2 GM/DL (11.6-15.3) Hematocrit 36.5 % (35.0-46.0) Mean Corpuscular Volume 95.5 FL (80.0-100.0) Mean Corpuscular Hemoglobin 32.0 PG (27.0-34.0) Mean Corpuscular Hemoglobin Concent 33.5 % (32.0-36.0) Red Cell Distribution Width 14.3 % (11.6-17.2) Platelet Count 430 TH/MM3 (150-450) Mean Platelet Volume 7.3 FL (7.0-11.0) Blood Urea Nitrogen 13 MG/DL (7-18) Creatinine 0.95 MG/DL (0.50-1.00) Random Glucose 116 MG/DL (74-106) Calcium Level 9.0 MG/DL (8.5-10.1) Phosphorus Level 3.7 MG/DL (2.5-4.9) Magnesium Level 2.0 MG/DL (1.5-2.5) Sodium Level 137 MEQ/L (136-145) Potassium Level 2.9 MEQ/L (3.5-5.1) Chloride Level 96 MEQ/L (98-107) Carbon Dioxide Level 34.5 MEQ/L (21.0-32.0) Anion Gap 7 MEQ/L (5-15) Estimat Glomerular Filtration Rate 62 ML/MIN (>89) Result Diagram: 10/05/17 1103 10/05/17 1103 (1) Mixed hyperlipidemia (2) COPD (chronic obstructive pulmonary disease) (3) Tobacco abuse (4) Lung mass (5) Robotic Left Lower Lobectomy Plan: pulm toileting OOB, ambulate nebs pain control / add toradol/ DC DOCUMENTATION MANAGER add additional po meds add reglan / GI motility meds path histology: invasive adenocarcinoma , mucinous type no lymph node involvement all margins uninvolved, pT1b, pNO Taylor Corbett October 05, 2017 13:48
[2017-10-05] MEDS ORDERED: HYDR-3516 PO (13:57)
[2017-10-05] MEDS ORDERED: DOXY100C PO (13:57)
[2017-10-05] MEDS ORDERED: DOCU1CAP39 PO (13:57)
[2017-10-05] MEDS: POTASSIUM BICARBONATE 25 MEQ EFFERVESCENT TAB PO SCH ×2 (14:07→16:08)
[2017-10-05] MEDS: DOXYCYCLINE HYCLATE 100 MG CAP PO SCH ×2 (14:07→21:04)
[2017-10-05] MEDS: RESP: ALBUTEROL 2.5 MG/IPRATROPIUM 0.5 MG NEB (SCH) NEB ×2 (16:39→19:57)
[2017-10-05] MEDS ORDERED: DOCUSATE SODIUM 100 MG CAP PO SCH (21:00)
[2017-10-05] MEDS: ZOLPIDEM TARTRATE 10 MG TAB PO PRN (21:01)
[2017-10-05] MEDS: PANTOPRAZOLE SOD 40 MG DELAYED RELEASE TAB PO SCH (21:02)
[2017-10-05] MEDS: ATORVASTATIN 20 MG TAB PO SCH (21:02)
[2017-10-06] VITALS (14 sets, daily range): BP systolic 130–137; BP diastolic 62–68; PULSE 84–124; RESP 16–20; TEMP 98.2; O2SAT 92–96
[2017-10-06] MEDS: ACETAMINOPHEN/HYDROcodone 325 MG/5 MG TAB PO PRN ×3 (01:09→09:16)
[2017-10-06] MEDS: LEVOTHYROXINE SODIUM 25 MCG TAB PO SCH (06:00)
[2017-10-06] MEDS: LEVOTHYROXINE SODIUM 112 MCG TAB PO SCH (06:00)
[2017-10-06] MEDS: RESP: ALBUTEROL 2.5 MG/IPRATROPIUM 0.5 MG NEB (SCH) NEB ×2 (07:53→08:04)
[2017-10-06 08:46] LABS: BICARBONATE 31.6 MEQ/L (21.0-32.0); CALCIUM 8.5 MG/DL (8.5-10.1); CREATININE 0.97 MG/DL (0.50-1.00)
[2017-10-06] MEDS: POLYETHYLENE GLYCOL 17 GM PKG PO SCH (09:00)
[2017-10-06] MEDS: DOCUSATE SODIUM 100 MG CAP PO SCH (09:14)
[2017-10-06] MEDS: buPROPion HCL 150 MG SUSTAINED RELEASE TAB PO SCH (09:14)
[2017-10-06] MEDS: HYDROCHLOROTHIAZIDE 12.5 MG CAP PO SCH (09:14)
[2017-10-06] MEDS: DOXYCYCLINE HYCLATE 100 MG CAP PO SCH (09:15)
[2017-10-06] MEDS: clonazePAM 0.5 MG TAB PO SCH (09:15)
[2017-10-06] MEDS: ESTRADIOL 1 MG TAB PO SCH (09:15)
[2017-10-06] MEDS: SODIUM CHLORIDE 0.9% FLUSH 10 ML FLUSH IV FLUSH SCH (09:16)
[2017-10-06] MEDS: FLUTICASONE PROPIONATE 50 MCG/ACT 16 GM NASAL SPRAY EACH NARE SCH (09:16)
--- NOTE | 2017-10-06 10:26 | HHI.DS ---
Discharge Summary Admission Date September 29, 2017 at 05:25 Discharge Date: October 06, 2017 Admitting Diagnosis 1) Left Lower Lobe Lung Mass 2) Severe COPD 3) Obesity (1) COPD (chronic obstructive pulmonary disease) Diagnosis: Principal ICD Codes: J44.9 - Chronic obstructive pulmonary disease, unspecified (2) Tobacco abuse Diagnosis: Principal ICD Codes: Z72.0 - Tobacco use Status: Chronic (3) Lung mass Diagnosis: Principal ICD Codes: R91.8 - Other nonspecific abnormal finding of lung field (4) Mixed hyperlipidemia Diagnosis: Principal Status: Chronic (5) Robotic Left Lower Lobectomy Diagnosis: Secondary Procedures 1. Robotic Left Lower Lobectomy 09/29/17 2. Mediastinal Lymph Node Dissection. 3. Intercostal Nerve Block 4. Lysis of Adhesions Brief History 51yr female presented to PCP, Pulmonary with SOB, complete workup demonstrated 1.4 cm Pet-Positive mass left lower lobe PMH COPD, hypothyroidism, lung mass , chronic nicotine use CBC/BMP: 10/05/17 1103 10/06/17 0349 Significant Findings Laboratory Tests Test 10/05/17 11:03 10/06/17 03:49 White Blood Count 11.3 TH/MM3 (4.0-11.0) Red Blood Count 3.82 MIL/MM3 (4.00-5.30) Random Glucose 116 MG/DL (74-106) Potassium Level 2.9 MEQ/L (3.5-5.1) Chloride Level 96 MEQ/L (98-107) Carbon Dioxide Level 34.5 MEQ/L (21.0-32.0) Estimat Glomerular Filtration Rate 62 ML/MIN (>89) 61 ML/MIN (>89) Imaging Last Impressions Chest X-Ray 10/05/17 1300 Signed Impressions: Service Date/Time: Friday, October 06, 2017 00:51 - CONCLUSION: Chest tube removal on the left without pneumothorax. Consolidative process George Keane MD FACR PE at Discharge GENERAL: A&O x 3 SKIN: Warm and dry. incision intact left posterior lateral chest wall HEAD: Normocephalic. EYES: No scleral icterus. No injection or drainage. NECK: Supple, trachea midline. No JVD or lymphadenopathy. CARDIOVASCULAR: Regular rate and rhythm without murmurs, gallops, or rubs. RESPIRATORY: Breath sounds equal bilaterally. No accessory muscle use. GASTROINTESTINAL: Abdomen soft, non-tender, nondistended. MUSCULOSKELETAL: No cyanosis, or edema. BACK: Nontender without obvious deformity. No CVA tenderness. Hospital Course 09/29/17 surgery: 1. Robotic Left Lower Lobectomy 2. Mediastinal Lymph Node Dissection. 3. Intercostal Nerve Block 4. Lysis of Adhesions 09/30 pain controlled with FRUIT GROWER 10/01 more painful today, despite FRUIT GROWER Toradol added still has +1 air leak, on water seal leave chest tube in OOB 10/02 pt nauseated , will dc FRUIT GROWER pump add reglan po pain meds intermittent air leak, no PTX on chest xray add GI motility meds 10/04/17 No complaints today. Remains on oxygen and has a small air leak this morning. 10/05 K+ 2.9 potassium po given, also one gram magnesium additional GI motility meds given eval for dc in am CXR noted, no PTX , atelectasis left lower lobe 10/06 passed walk test , does not need home 02 stable for dc home Pt Condition on Discharge: Good Discharge Disposition: Disch w/ Home Health Serv Discharge Instructions DIET: Follow Instructions for: As Tolerated, No Restrictions Activities you can perform: Full Weight Bearing, Shower Only-No Bath Activities to avoid: Strenuous Activity, Driving Additional Activity Instructio: no liftign > 8 lbs or gallon of milk Follow up Referrals: Appointment for Follow Up - 4 Weeks with Jeremias Etienne MD PCP Follow-up - 2 Weeks with Rosamaria Carranza D.o. Surgical - 2 Weeks with Jere Tolentino MD New Medications: Docusate Sodium (Dok) 100 Mg Cap 100 MG PO BID for Constipation, #60 CAP 0 Refills Doxycycline Hyclate (Doxycycline Hyclate) 100 Mg Cap 100 MG PO BID for antibiotic, #14 CAP 0 Refills Hydrocodone/Acetaminophen (Hydrocodone-Acetamin 5-325 mg) 5 Mg-325 Mg Tablet 1 TAB PO Q4H PRN for PAIN SCALE 3 TO 5, #40 TAB 0 Refills Continued Medications: Albuterol 8.5 GM Inh (Proair Hfa 8.5 GM Inh) 90 Mcg/Act Aer 1 PUFF INH Q4H PRN for SHORTNESS OF BREATH, #1 INHALER 0 Refills 108 mcg/actuation Bupropion HCl ER 24 HR (Bupropion HCl ER 24 HR) 300 Mg Tab 300 MG PO DAILY for Control Depression, TAB 0 Refills Clonazepam (Clonazepam) 0.5 Mg Tab 0.5 MG PO BID, #60 TAB 0 Refills Estradiol (Estradiol) 2 Mg Tab 2 MG PO DAILY for Estrogen Supplements, #30 TAB 0 Refills Fluticasone Nasal [place] (Flonase Allergy Relief Children Nasal [place]) 50 Mcg/ Act [place] 1 SPRAY EACH NARE DAILY for Allergy Management, #1 BOTTLE 0 Refills 50 mcg/spray Pdpjnwsjzlw-Sbygauklp-Zzpeoosr Inh (Trelegy Ellipta 100-62.5-25 Inh) 100-62.5- 25 Mcg Inhaler 1 BLISTER INH DAILY for COPD, #28 BLISTER 0 Refills Hydrochlorothiazide (Hydrochlorothiazide) 12.5 Mg Tab 12.5 MG PO DAILY, #30 TAB 0 Refills Ipratropium Neb (Ipratropium Neb) 0.5 Mg/2.5 Ml Amp 0.5 MG NEB Q6HR NEB PRN for SHORTNESS OF BREATH, #120 NEBULE 0 Refills Levothyroxine (Synthroid) 137 Mcg Tab 137 MCG PO DAILY for Thyroid, #30 TAB 0 Refills Loratadine (Claritin) 10 Mg Cap 10 MG PO DAILY for Allergy Management, CAP 0 Refills Losartan (Losartan) 100 Mg Tab 100 MG PO HS for Blood Pressure Management, #30 TAB 0 Refills Pantoprazole (Pantoprazole) 40 Mg Tab 40 MG PO DAILY for Reflux, #30 TAB 0 Refills Rosuvastatin (Rosuvastatin) 10 Mg Tab 10 MG PO HS for Cholesterol Management, TAB 0 Refills Zolpidem (Zolpidem) 10 Mg Tab 10 MG PO HS PRN for INSOMNIA, TAB 0 Refills Taylor Corbett October 06, 2017 10:26
== END 2017-10-06 11:30 | disposition home health service (06) | DRG 164 ==
LOC: HSDI 05:25 → HCPC 15:15
PROVIDERS: ADMIT Thoracic Surgery (Cardiothoracic Vascular Surgery); ATTEND Thoracic Surgery (Cardiothoracic Vascular Surgery)
PROC: 07B70ZX Excision of Thorax Lymphatic, Open Approach, Diagnostic (ICD-10-PCS; 2017-09-29)
PROC: 0BBJ0ZX Excision of Left Lower Lung Lobe, Open Approach, Diagnostic (ICD-10-PCS; 2017-09-29)
PROC: 8E0W4CZ Robotic Assisted Procedure of Trunk Region, Percutaneous Endoscopic Approach (ICD-10-PCS; 2017-09-29)
PROC: 3E0T3BZ Introduction of Anesthetic Agent into Peripheral Nerves and Plexi, Percutaneous Approach (ICD-10-PCS; 2017-09-29)
PROC: 0W9B30Z Drainage of Left Pleural Cavity with Drainage Device, Percutaneous Approach (ICD-10-PCS; 2017-09-29)
PROC: 0BTJ0ZZ Resection of Left Lower Lung Lobe, Open Approach (ICD-10-PCS; principal; 2017-09-29 07:34)
DX: C34.32 Malignant neoplasm of lower lobe, left bronchus or lung (principal); J93.82 Other air leak; J44.9 Chronic obstructive pulmonary disease, unspecified; E66.9 Obesity, unspecified; Z68.28 Body mass index [BMI] 28.0-28.9, adult; E03.9 Hypothyroidism, unspecified; Z72.0 Tobacco use; E78.2 Mixed hyperlipidemia; R11.0 Nausea
CPT/HCPCS: 71045; 76937; 80048; 83735; 84100; 85025; 85027; 86850; 86900; 86901; 86920; 88307; 88331; 88341; 88342; 94150; 94618; 94640; 94664; 94667; 94668; C9290; J0131; J0690; J1100; J1644; J1885; J2250; J2270; J2370; J2405; J2765; J3010; J3370; J3475; J7040; J7050; J7120; J7613

== ENCOUNTER 2017-10-26 16:36 | Emergency (ER) | payer BC ==
[~2017-10-26] VITALS: Ht 154.9 cm; Wt 85.0 kg
[~2017-10-26 16:36] MED LIST changes: +DOCU1CAP39 PO; +DOXY100C PO; +HYDR-3516 PO
[2017-10-26 17:51] VITALS: BP 155/70; PULSE 110; RESP 20; TEMP 97.6; O2SAT 96
[2017-10-26] MEDS ORDERED: SODIUM CHLORIDE 0.9% FLUSH 10 ML FLUSH IVF PRN (18:30)
[2017-10-26 18:32] VITALS: BP 131/88; PULSE 96; RESP 20; O2SAT 95
[2017-10-26 18:34] VITALS: BP 131/88; PULSE 96; RESP 20; O2SAT 96
[2017-10-26] MEDS ORDERED: MIRA3350 PO (18:43)
[2017-10-26] MEDS ORDERED: EXCETAB31 (18:43)
[2017-10-26] MEDS ORDERED: ALEVE (18:43)
[2017-10-26] MEDS ORDERED: FLUO0.05 TOPICAL (18:43)
[2017-10-26] MEDS ORDERED: ASPI1POW8 (18:43)
[2017-10-26 19:34] LABS: AUTOMATED NEUTROPHIL # 4.5 TH/MM3 (1.8-7.7); BASOPHIL % 0.6 % (0.0-2.0); EOSINOPHIL # 0.3 TH/MM3 (0-0.4); EOSINOPHIL % 4.2 % (0.0-4.0); HEMATOCRIT 38.2 % (35.0-46.0); LYMPH % 26.5 % (9.0-44.0); LYMPHOCYTE # 2.1 TH/MM3 (1.0-4.8); MEAN CELL VOLUME 92.2 FL (80.0-100.0); MEAN CORPUSCULAR HEMOGLOBIN 31.4 PG (27.0-34.0); MEAN PLATELET VOLUME 7.6 FL (7.0-11.0); MONO % 13.1 % (0.0-8.0); MONOCYTE # 1.1 TH/MM3 (0-0.9); NEUT % 55.6 % (16.0-70.0); PLATELET COUNT 456 TH/MM3 (150-450); RED BLOOD COUNT 4.14 MIL/MM3 (4.00-5.30); RED CELL DISTRIBUTION WIDTH 14.5 % (11.6-17.2); WHITE BLOOD COUNT 8.1 TH/MM3 (4.0-11.0)
--- NOTE | 2017-10-26 19:37 | RADRPT ---
EXAM DATE: 10/26/2017 6:36 PM EDT AGE/SEX: 51 years / Female INDICATIONS: Chest pain CLINICAL DATA: This is the patient's initial encounter. Patient reports that signs and symptoms have been present for 1 day and indicates a pain score of 4/10. MEDICAL/SURGICAL HISTORY: Congestive heart failure. None. COMPARISON: [facility] – [place]ST SING[place], 10/04/2017. . FINDINGS: There is left basilar airspace disease and blunting of the left costophrenic angle similar to October 06. Right lung remains relatively clear. Stable interstitial prominence. CONCLUSION: Stable left basilar airspace disease and blunting of the left costophrenic angle compared with prior chest radiograph. Electronically signed by: Ben Singh MD 10/26/2017 7:36 PM EDT
--- NOTE | 2017-10-26 19:40 | PD ---
Physical Exam Narrative General: The patient is a well-developed well-nourished female in no acute distress. Head and Neck exam: Head is normocephalic atraumatic. Eyes: EOMI, pupils are equal round and reactive to light. Nose: Midline septum with pink mucous membranes Mouth: Dentition unremarkable. Moist mucus membranes. Posterior oropharynx is not erythematous. No tonsillar hypertrophy. Uvula midline. Airway patent. Neck: No palpable lymphadenopathy. No nuchal rigidity. No thyromegaly. Cardiovascular: Regular rate and rhythm, pulse rate in the 90s, without murmurs, gallops, or rubs. No pulse deficit to the extremities on simultaneous auscultation and palpation of her radial artery. Lungs: Decreased breath sounds in the left lower lung base. No wheezes or rhonchi are audible. The patient is status post left lower lobe lobectomy on September 29. Abdomen: Soft, with reported tenderness on palpation along the midepigastric area and left upper quadrant of the abdomen. She reports that she has had muscle tenderness on palpation along this site since surgery. No guarding, rebound, or rigidity. Normal bowel sounds are audible. No tenderness on palpation of McBurney's point. Negative Gutierrez sign. Extremities: No clubbing, cyanosis, or edema. 2+ pulses in all 4 extremities. No calf tenderness on palpation. Back: No spinous process tenderness to palpation. No costovertebral angle tenderness to palpation. The patient's postoperative wounds appear to be healing well. No signs of erythema or drainage. Neurologic Exam: Grossly nonfocal. Skin Exam: No rash noted. Intact skin that is warm and dry. Data Data Last Documented VS Vital Signs Date Time Temp Pulse Resp B/P (MAP) Pulse Ox O2 Delivery O2 Flow Rate FiO2 10/26/17 22:01 10/26/17 18:34 96 20 96 Room Air 10/26/17 17:51 97.6 Orders Orders Electrocardiogram (10/26/17 17:57) Complete Blood Count With Diff (10/26/17 17:57) Basic Metabolic Panel (Bmp) (10/26/17 17:57) Ckmb (Isoenzyme) Profile (10/26/17 17:57) Troponin I (10/26/17 17:57) Chest, Single Ap (10/26/17 17:57) Iv Access Insert/Monitor (10/26/17 18:26) Ecg Monitoring (10/26/17 18:26) Oximetry (10/26/17 18:26) Ct Pulmonary Angiogram (10/26/17 18:26) Sodium Chloride 0.9% Flush (Ns Flush) (10/26/17 18:30) Cyclobenzaprine (Flexeril) (10/26/17 20:45) Ed Discharge Order (10/26/17 21:26) Iohexol 350 Inj (Omnipaque 350 Inj) (10/26/17 21:00) Labs Laboratory Tests Test 10/26/17 18:50 White Blood Count 8.1 TH/MM3 Red Blood Count 4.14 MIL/MM3 Hemoglobin 13.0 GM/DL Hematocrit 38.2 % Mean Corpuscular Volume 92.2 FL Mean Corpuscular Hemoglobin 31.4 PG Mean Corpuscular Hemoglobin Concent 34.0 % Red Cell Distribution Width 14.5 % Platelet Count 456 TH/MM3 Mean Platelet Volume 7.6 FL Neutrophils (%) (Auto) 55.6 % Lymphocytes (%) (Auto) 26.5 % Monocytes (%) (Auto) 13.1 % Eosinophils (%) (Auto) 4.2 % Basophils (%) (Auto) 0.6 % Neutrophils # (Auto) 4.5 TH/MM3 Lymphocytes # (Auto) 2.1 TH/MM3 Monocytes # (Auto) 1.1 TH/MM3 Eosinophils # (Auto) 0.3 TH/MM3 Basophils # (Auto) 0.0 TH/MM3 CBC Comment DIFF FINAL Differential Comment Blood Urea Nitrogen 18 MG/DL Creatinine 1.02 MG/DL Random Glucose 85 MG/DL Calcium Level 9.4 MG/DL Sodium Level 138 MEQ/L Potassium Level 3.3 MEQ/L Chloride Level 100 MEQ/L Carbon Dioxide Level 26.2 MEQ/L Anion Gap 12 MEQ/L Estimat Glomerular Filtration Rate 57 ML/MIN Total Creatine Kinase 47 U/L Troponin I LESS THAN 0.02 NG/ML MDM Medical Record Reviewed: Yes Supervised Visit with TOMASA: Yes Narrative Course I, Dr. Squires, have reviewed the advance practice practitioner's documentation and am in agreement, met with the patient face to face, made the diagnosis, and the medical decision making was done by me. The patient was initially evaluated by Augustina, the PA. Please see their complete history and physical. *My assessment and Findings: The patient presents with a history of being seen by her security specialist earlier today. The patient was noted to be tachycardic with dyspnea on exertion. She recommended that she go directly to the emergency department for evaluation she is recently postop status post left lower lobectomy to rule out pulmonary embolism, versus other postoperative complication. She denies having any fevers or chills. She denies having any significant cough or congestion. She denies having any calf pain or swelling . During the course of the patient's emergency department visit, the patient's history, examination, and differential diagnosis were reviewed with the patient. The patient was placed on a quality assurance monitor final with oximetry and frequent blood pressure monitoring. The patient had IV access obtained and blood work sent for analysis. The patient was provided during her emergency department visit, Flexeril 10 mg p.o. 1 for muscle spasms of her chest wall. The patient's laboratory studies were reviewed and remarkable for a white count of 8.1, hemoglobin 13, platelets 456 with 13.1 monocytes, basic metabolic profile is remarkable for potassium 3.3, creatinine 1.02, cardiac enzymes within normal limits. Last Impressions CT Angiography 10/26/17 564 Signed Impressions: CONCLUSION: 1. Negative for pulmonary embolus. 2. Postoperative left lower lobectomy with loculated air and fluid at the left lung base. Differential diagnosis includes empyema and small air leak and sutu red left lower lobe bronchus. 3. Mild emphysema. Biapical lung scarring. Chest X-Ray 10/26/17 7517 Signed Impressions: CONCLUSION: Stable left basilar airspace disease and blunting of the left costophrenic angl e compared with prior chest radiograph. The patient's results were discussed with the patient's cardiothoracic surgeon. The communication was between Augustina, the physician switchboard operator assistant and the surgeon. It was agreed that the patient was stable for discharge. The patient will be discharged home to follow-up with her surgeon and primary care physician. The patient is resting comfortably and feels better, is alert and in no distress. The patient's results and examination findings were discussed with the patient. The repeat examination is unremarkable and benign. The history, exam, diagnostic testing, and current condition do not suggest any significant pathology to warrant further testing, continued ED treatment, admission, or surgical evaluation at this point. The vital signs have been stable. The patient does not have uncontrollable pain, intractable vomiting, or other significant symptoms. The patient's condition is stable and appropriate for discharge. The patient will pursue further outpatient evaluation with a primary care physician or other designated or consulting physician as indicated in the discharge instructions. The patient is instructed to report back to the emergency department immediately for reexamination in the mean time if she develops any new or worsening signs or symptoms. The patient expressed understanding and was agreeable with this plan. Diagnosis Primary Impression: Shortness of breath Additional Impression: Muscle spasm Scripts Cyclobenzaprine (Flexeril) 10 Mg Tab 10 MG PO TID for Muscle Spasm, #6 TAB 0 Refills Prov: Violette Squires MD 10/26/17 Violette Squires MD Oct 26, 2017 19:40
[2017-10-26 19:47] LABS: BICARBONATE 26.2 MEQ/L (21.0-32.0); BLOOD UREA NITROGEN 18 MG/DL (7-18); CALCIUM 9.4 MG/DL (8.5-10.1); CHLORIDE 100 MEQ/L (98-107); CREATININE 1.02 MG/DL (0.50-1.00); GLOMERULAR FILTRATION RATE 57 ML/MIN (>89); GLUCOSE,RANDOM 85 MG/DL (74-106); SODIUM (NA) 138 MEQ/L (136-145)
[2017-10-26 19:52] LABS: TROPONIN I LESS THAN 0.02 NG/ML (0.02-0.05)
--- NOTE | 2017-10-26 20:41 | PD ---
HPI Chief Complaint: Respiratory Distress Time Seen by Provider: 18:20 Travel History International Travel<30 days: No Contact w/Intl Traveler<30days: No Traveled to known affect area: No History of Present Illness HPI 51-year-old female with PMH of left lung mass status post robotic left lower lobectomy presents the ED after abnormal result. Patient denies chest pain, palpitations. She states the shortness of breath is the same that she has been experiencing for many months. She denies cough, fever, chills, nausea, vomiting , abdominal pain, dysuria, weakness of the extremities. Patient states that she saw Dr. Tolentino today. He was concerned with her tachycardia and continued shortness of breath. She states she was told to come to the ED to rule out PE. PFSH Past Medical History Arthritis: Yes (RA) Cancer: Yes (LEFT LOWER LUNG CA) Cardiovascular Problems: Yes (HTN) High Cholesterol: Yes COPD: Yes Diabetes: No Endocrine: Yes Gastrointestinal Disorders: Yes (GERD) Genitourinary: No Hepatitis: No Hiatal Hernia: No Hypertension: Yes Immune Disorder: No Musculoskeletal: Yes (OA) Neurologic: Yes (MIGRAINES) Psychiatric: No Reproductive: No Respiratory: Yes (COPD, LLL CA) Thyroid Disease: Yes (HYPOTHYROIDISM) Tetanus Vaccination: Unknown Influenza Vaccination: No ?: Not Menopausal: Yes Past Surgical History Abdominal Surgery: Yes (CHOLECYSTECTOMY) AICD: No Cardiac Surgery: No Section: Yes Cholecystectomy: Yes Ear Surgery: No Endocrine Surgery: No Eye Surgery: No Genitourinary Surgery: No Gynecologic Surgery: Yes (PARTIAL HYSTERECTOMY) Hysterectomy: Yes (PARTIAL) Joint Replacement: No Oral Surgery: No Pacemaker: No Thoracic Surgery: Yes (LOBECTOMY LEFT LOWER) Other Surgery: Yes (ESOPHAGUS STRETCHED) Social History Alcohol Use: Yes (OCC; LAST DRINK 3 WEEKS AGO) Tobacco Use: No (1.5 TO 2 PPD) Substance Use: No Allergies-Medications (Allergen,Severity, Reaction): Coded Allergies: Sulfa (Sulfonamide Antibiotics) (Verified Allergy, Severe, HIVES AND SWELLING, 10/26/17) cefuroxime (Unverified Allergy, Severe, HIVES, 10/26/17) Reported Meds & Prescriptions Reported Meds & Active Scripts Active Flexeril (Cyclobenzaprine HCl) 10 Mg Tab 10 Mg PO TID Dok (Docusate Sodium) 100 Mg Cap 100 Mg PO BID Hydrocodone-Acetamin 5-325 mg (Hydrocodone/Acetaminophen) 5 Mg-325 Mg Tablet 1 Tab PO Q4H PRN Reported [Aleve] Miralax Powder (Polyethylene Glycol 3350 Powder) 17 Gm Powd 17 Gm PO DAILY Mix and dissolve one measuring cap-ful (17 grams) in water or juice. Bc Powder Packet (Aspirin/Caffeine) 845 Mg-65 Mg Powd.pack Excedrin Migraine Caplet (Aspirin/Acetaminophen/Caffeine) 250 Mg-250 Mg-65 Mg Tablet Fluocinonide Topical (Fluocinonide) 0.05% Cream 1 Applic TOPICAL TID Apply thin layer to affected area(s) Zolpidem (Zolpidem Tartrate) 10 Mg Tab 10 Mg PO HS PRN Clonazepam 0.5 Mg Tab 0.5 Mg PO BID Pantoprazole (Pantoprazole Sodium) 40 Mg Tab 40 Mg PO DAILY Proair Hfa 8.5 GM Inh (Albuterol Sulfate) 90 Mcg/Act Aer 1 Puff INH Q4H PRN 108 mcg/actuation Ipratropium Neb (Ipratropium Marlow) 0.5 Mg/2.5 Ml Amp 0.5 Mg NEB Q6HR NEB PRN Rosuvastatin (Rosuvastatin Calcium) 10 Mg Tab 10 Mg PO HS Losartan (Losartan Potassium) 100 Mg Tab 100 Mg PO HS Trelegy Ellipta 100-62.5-25 Inh (Qlicoeqrpvd-Dqtowwynl-Ufcrnron Inh) 100-62.5- 25 Mcg Inhaler 1 Blister INH DAILY Flonase Allergy Relief Children Nasal [place] (Fluticasone Nasal [place]) 50 Mcg/ Act [place] 1 [place] EACH NARE DAILY 50 mcg/spray Claritin (Loratadine) 10 Mg Cap 10 Mg PO DAILY Bupropion HCl ER 24 HR (Bupropion HCl) 300 Mg Tab 300 Mg PO DAILY Hydrochlorothiazide 12.5 Mg Tab 12.5 Mg PO DAILY Synthroid (Levothyroxine Sodium) 137 Mcg Tab 137 Mcg PO DAILY Review of Systems Except as stated in HPI: all other systems reviewed are Neg Physical Exam Narrative GENERAL: Well-nourished, well-developed white female no acute distress. SKIN: Focused skin assessment warm/dry. Well-healing laparoscopic port incisions on the left lateral back and abdomen. Mildly tender. No signs of infection. HEAD: Normocephalic. EYES: No scleral icterus. No injection or drainage. NECK: Supple, trachea midline. No JVD or lymphadenopathy. CARDIOVASCULAR: Regular rate and rhythm without murmurs, gallops, or rubs. RESPIRATORY: Breath sounds clear bilaterally. Absent in the left lower lobe area.. No accessory muscle use. GASTROINTESTINAL: Abdomen soft, non-tender, nondistended. MUSCULOSKELETAL: No cyanosis, or edema. BACK: Nontender without obvious deformity. No CVA tenderness. Data Data Last Documented VS Vital Signs Date Time Temp Pulse Resp B/P (MAP) Pulse Ox O2 Delivery O2 Flow Rate FiO2 10/26/17 18:34 96 20 131/88 (102) 96 Room Air 10/26/17 17:51 97.6 Orders Orders Electrocardiogram (10/26/17 17:57) Complete Blood Count With Diff (10/26/17 17:57) Basic Metabolic Panel (Bmp) (10/26/17 17:57) Ckmb (Isoenzyme) Profile (10/26/17 17:57) Troponin I (10/26/17 17:57) Chest, Single Ap (10/26/17 17:57) Iv Access Insert/Monitor (10/26/17 18:26) Ecg Monitoring (10/26/17 18:26) Oximetry (10/26/17 18:26) Ct Pulmonary Angiogram (10/26/17 18:26) Sodium Chloride 0.9% Flush (Ns Flush) (10/26/17 18:30) Cyclobenzaprine (Flexeril) (10/26/17 20:45) Ed Discharge Order (10/26/17 21:26) Labs Laboratory Tests Test 10/26/17 18:50 White Blood Count 8.1 TH/MM3 Red Blood Count 4.14 MIL/MM3 Hemoglobin 13.0 GM/DL Hematocrit 38.2 % Mean Corpuscular Volume 92.2 FL Mean Corpuscular Hemoglobin 31.4 PG Mean Corpuscular Hemoglobin Concent 34.0 % Red Cell Distribution Width 14.5 % Platelet Count 456 TH/MM3 Mean Platelet Volume 7.6 FL Neutrophils (%) (Auto) 55.6 % Lymphocytes (%) (Auto) 26.5 % Monocytes (%) (Auto) 13.1 % Eosinophils (%) (Auto) 4.2 % Basophils (%) (Auto) 0.6 % Neutrophils # (Auto) 4.5 TH/MM3 Lymphocytes # (Auto) 2.1 TH/MM3 Monocytes # (Auto) 1.1 TH/MM3 Eosinophils # (Auto) 0.3 TH/MM3 Basophils # (Auto) 0.0 TH/MM3 CBC Comment DIFF FINAL Differential Comment Blood Urea Nitrogen 18 MG/DL Creatinine 1.02 MG/DL Random Glucose 85 MG/DL Calcium Level 9.4 MG/DL Sodium Level 138 MEQ/L Potassium Level 3.3 MEQ/L Chloride Level 100 MEQ/L Carbon Dioxide Level 26.2 MEQ/L Anion Gap 12 MEQ/L Estimat Glomerular Filtration Rate 57 ML/MIN Total Creatine Kinase 47 U/L Troponin I LESS THAN 0.02 NG/ML MDM Medical Decision Making Medical Screen Exam Complete: Yes Emergency Medical Condition: Yes Differential Diagnosis PE versus postoperative complication versus wound infection versus COPD exacerbation versus other Narrative Course 51-year-old female with PMH of COPD, lung mass status post robotic left lower lobectomy presents to the ED for evaluation of tachycardia and shortness of breath. Patient states that she contacted her cardiothoracic surgeon, Dr. Tolentino. She states that he was concerned for PE. Pulse 111 on presentation, respiratory rate 20, O2 sats 96% on room air. On exam the patient has some tenderness of the surgical sites and absent lung sounds in the left lower lobe area, otherwise unremarkable. EKG rate 98, sinus rhythm, OK interval 164, QRS 94, QTc 409 ms. Normal axis. No acute ST changes. Reviewed by Dr. Squires. CXR: Stable left basilar airspace disease and blunting of the left costophrenic angle compared to prior chest radiograph per radiology read. CTA: Negative for pulmonary embolism. Postoperative left lower lobectomy with loculated air and fluid in the left lung base. Differential diagnosis includes empyema and small air leak and sutured left lower lobe bronchus. Mild emphysema. Biapical scarring. CBC: WBC 8.1. Hemoglobin 13.0. Coags: INR 1.0. CMP: BUN 18, creatinine 0.12. Potassium 3.3. Cardiac enzymes negative 1. Heart rate improved to 96 on recheck. Patient states she is having pain at the surgical incision, request a muscle relaxant which she states works better than pain medicines that she has at home. She was administered 10 mg Norflex. I discussed the case with the on-call cardiothoracic surgeon. He feels the patient safe for discharge. I discussed the results the workup and plan with the patient who is happy to be going home. She was provided strict return precautions, instructed to follow-up with Dr. Tolentino tomorrow. She indicated understanding of the instructions and is agreeable to care plan. The patient is stable and discharged home. Diagnosis Primary Impression: Shortness of breath Referrals: Jere Tolentino MD Additional Instructions: Rest, hydrate. Resume at home medications as previously prescribed. Follow-up with Dr. Tolentino's office. Return to the ED for worsening symptoms or any urgent or emergent medical condition. Scripts Cyclobenzaprine (Flexeril) 10 Mg Tab 10 MG PO TID for Muscle Spasm, #6 TAB 0 Refills Prov: Violette Squires MD 10/26/17 Disposition: 01 DISCHARGE HOME Condition: Stable Augustina Alejo Oct 26, 2017 20:41
[2017-10-26] MEDS ORDERED: CYCLOBENZAPRINE HCL 10 MG TAB PO ONE (20:45)
[2017-10-26] MEDS ORDERED: IOHEXOL 350 MG/ML 10 ML VIAL (for RAD DIAG) IVCONTRAST ONE (21:00)
--- NOTE | 2017-10-26 21:15 | RADRPT ---
EXAM DATE: 10/26/2017 9:01 PM EDT AGE/SEX: 51 years / Female INDICATIONS: Shortness of breath. CLINICAL DATA: This is the patient's initial encounter. Patient reports that signs and symptoms have been present for 1 day and indicates a pain score of 2/10. MEDICAL/SURGICAL HISTORY: Carcinoma, lung. Hypertension. Lobectomy. Hysterectomy. RADIATION DOSE: 10.68 CTDI (mGy) COMPARISON: No prior [facility] exams available for comparison. TECHNIQUE: Volumetric scanning was performed using a multi-row detector CT scanner during bolus infu honey of 75 ml Omnipaque 350 (iohexol) nonionic water-soluble contrast as a single exam dose. The renetta a was post processed with a variety of visualization algorithms including full volume maximum intensi ty projection and sliding thin slab reformation. Using automated exposure control and adjustment of the mA and/or kV according to patient size, radiation dose was kept as low as reasonably achievable t o obtain optimal diagnostic quality images. FINDINGS: There is a postoperative changes of left lower lobectomy. There is a left-sided pleural effusion whic h is at least partially loculated. Effusion also containing multiple locules of air. Right lung is cl ear. No filling defects to suggest pulmonary embolic disease. CONCLUSION: 1. Negative for pulmonary embolus. 2. Postoperative left lower lobectomy with loculated air and fluid at the left lung base. Differenti al diagnosis includes empyema and small air leak and sutured left lower lobe bronchus. 3. Mild emphysema. Biapical lung scarring. Electronically signed by: Ben Singh MD 10/26/2017 9:13 PM EDT
[2017-10-26] MEDS ORDERED: CYCL10TA PO (21:33)
--- NOTE | 2017-10-27 15:48 | EKG ---
Date Performed: 10/26/2017 Time Performed: 18:03:46 PTAGE: 51 years EKG: Sinus rhythm NORMAL ECG Since the PREVIOUS TRACING , no significant change noted PREVIOUS TRACIN09/22/2017 11.12 DOCTOR: Dagmar Lerma Interpretating Date/Time 10/27/2017 15:47:25
== END 2017-10-26 22:02 | disposition home or self-care (01) ==
LOC: NEPC 16:36
DX: R06.02 Shortness of breath (principal); R00.0 Tachycardia, unspecified; E78.00 Pure hypercholesterolemia, unspecified; E03.9 Hypothyroidism, unspecified; M62.838 Other muscle spasm
CPT/HCPCS: 71045; 71275; 80048; 82550; 84484; 85025; 93005; 99285; Q9967